=== PATIENT | female | born 1955 ===

== ENCOUNTER → 2021-07-10 | Day surgery (SDC) | payer MEDICARE ==
[~2021-07-10] VITALS: Ht 165.1 cm; Wt 64.4 kg
[~2021-07-10] MED LIST: GABAPENTIN800 MG PO; IBUPROFEN600 MG PO
== END | disposition home or self-care (01) ==
LOC: OR 06:14
PROVIDERS: Surgery
PROC: 0DBM8ZX Excision of Descending Colon, Via Natural or Artificial Opening Endoscopic, Diagnostic (ICD-10-PCS; principal; 2021-07-10 07:30)
DX: Z12.11 Encounter for screening for malignant neoplasm of colon (principal); D12.4 Benign neoplasm of descending colon; Q43.8 Other specified congenital malformations of intestine; K57.30 Diverticulosis of large intestine without perforation or abscess without bleeding; G89.29 Other chronic pain; Z90.710 Acquired absence of both cervix and uterus; Z20.822 Contact with and (suspected) exposure to COVID-19; Z88.5 Allergy status to narcotic agent; Z79.1 Long term (current) use of non-steroidal anti-inflammatories (NSAID); Z79.899 Other long term (current) drug therapy; E07.9 Disorder of thyroid, unspecified
CPT/HCPCS: J2704; J7120